=== PATIENT | male | born 1960 | race Caucasian/White ===

== ENCOUNTER → 2017-03-19 | Outpatient (CLI) | payer MEDICARE, OTHER ==
[~2017-03-19] MED LIST: ALDACTONE 25MG25 MG PO; ASPIRIN 81MG TA81 MG PO; ATORVASTATIN CA10 M1 PO; BRILINTA90 M1 PO; CARVEDILOL 1212.5 MG PO; CARVEDILOL 25MG25 MG PO; CARVEDILOL6.25 MG PO; CELEBREX50 MG PO; DEPO-TESTOS200 MG/ML IM; DULOXETINE60 MG PO; EFFIENT10 MG PO; FLAGYL500 M1 PO; FLEXERIL10 MG PO; HYDROCODONE-APA1 TA2 PO; IMDUR30 MG PO; LASIX 40MG. TAB40 MG PO; LEVAQUIN500 MG PO; LISINOPRIL 10MG10 MG PO; LISINOPRIL 20MG20 MG NG; LISINOPRIL5 MG NG; MULTI VITAMINS1 TA1 PO; NITROGLYCERIN0.4 MG SL; PANTOPRAZOLE SO40 M1 PO; RANEXA500 M1 PO; ROPINIROLE HYD0.5 MG PO; SPIRONOLACTONE25 MG NG
--- NOTE | 2017-03-20 08:10 | RADIOLOGY REPORT PS360 ---
CT LUMBAR SPINE W/O CONTRAST CLINICAL INDICATION: RT SIDED SCIATICA, RT HIP PAIN ORDERING PHYSICIAN: Brian Major MD PATIENT AGE: 57 years COMPARISON: Radiograph of 03/08/2017 and prior MRI of 07/30/2011 TECHNIQUE:Axial, sagittal, and coronal images are generated and reviewed without contrast FINDINGS: Multilevel lumbar spondylosis is present as described below. There is mild lumbar scoliosis convex left. No acute fracture or dislocation. No lytic or blastic change. T10-T11: Mild degenerative disc disease. T11-T12: Mild facet arthropathy. T12-L1: Moderate degenerative disc disease with mild endplate spurring and sclerosis with small disc osteophyte complex and facet arthropathy. L1-L2: Degenerative disc disease with minimal bulging disc. Mild right-sided foraminal narrowing L2-L3: Moderate to severe degenerative disc disease with endplate sclerosis and osteophyte formation with endplate osteophytes and mild bulging disc. Mild right-sided foraminal narrowing. L3-L4: Laminotomy defect on the right with degenerative disc disease and facet arthropathy along with bulging disc with mild right-sided foraminal narrowing. L4-L5: Moderate to severe degenerative disc disease facet arthropathy with bulging disc and endplate osteophytes. Mild right-sided foraminal narrowing and moderate left-sided foraminal narrowing. L5-S1: Transitional segment labeled as L5 similar to the previous MRI. Mild facet arthropathy. Osteoarthritic changes are present involving the right SI joint. IMPRESSION: Multilevel lumbar spondylosis with degenerative disc disease and facet arthritic changes with scoliosis bulging disc and foraminal narrowing as detailed each level above. Please see above for detailed description at each level.
== END ==
LOC: RAD 09:28
DX: M54.31 Sciatica, right side (principal); M25.551 Pain in right hip

== ENCOUNTER 2017-05-17 08:10 | Day surgery (SDC) | payer MEDICARE, OTHER ==
[2017-05-17] VITALS (12 sets, daily range): BP systolic 103–129; BP diastolic 58–90
[~2017-05-17] VITALS: Ht 175.3 cm; Wt 105.2 kg
[~2017-05-17 08:10] MED LIST changes: +APAP/HYDROCODON1 TA9 PO; -HYDROCODONE-APA1 TA2 PO; +LINZESS290 MCG PO; +LYRICA50 MG PO; +PREDNISONE 20MG20 MG PO; +PROTONIX40 MG PO; +TRAZODONE100 MG PO
--- NOTE | 2017-05-17 09:58 | Procedure Note ---
Procedure detail Date of procedure: 05/17/17 Anesthesiologist: Dario Nelson MD Complications: None Pre-procedure diagnosis: Post laminectomy syndrome, degenerative disc disease of the lumbar spine Post-procedure diagnosis: same Indications for procedure: This patient is a pleasant 57-year-old white male who we are seeing for postlaminectomy syndrome with lumbar radiculopathy symptoms. He is currently on hydrocodone 7.5 mg 4 times a day, 2 in the morning and 2 at night which did not give him adequate pain relief. He has failed all conservative therapy including injections, oral medications, physical therapy and previous surgery. He is a good candidate for intrathecal therapy. I answered all questions and explained the risk and benefits. Since he has been on oral narcotics for such a long time I do believe that he would be a candidate for intrathecal ziconotide. We will plan on intrathecal ziconotide trial with single shot 5 g. He has had a successful psychological evaluation. Procedure detail: Informed consent was obtained and the risk and benefits of the procedure was explained to the patient. The patient was taken to the procedure room. He was prepped and draped in sterile fashion. C-arm fluoroscopy was used to view the lumbar spine. The skin and subcu tissues were dissected using lidocaine. A 17- gauge spinal needle was inserted and advanced into the L4-5 interspace until clear CSF was obtained. After this intrathecal catheter was inserted and advanced very easily to the L1 vertebral body. The catheter was secured in place we were able to easily withdraw clear CSF through the catheter. The patient tolerated the procedure very well with no compensations. He was taken to the recovery room in stable condition. After obtaining one set of vital signs the patient was bolused with intrathecal ziconotide 5 g single shot bolus. The patient did well with physical therapy. He did have some relief of his pain symptoms. Catheter was pulled, a Band-Aid was placed and patient was discharged home. Plan and disposition: We will follow-up with this patient in 1 week. We will reevaluate his symptoms and efficacy of the trial that time. at [id number]
== END 2017-05-17 12:00 | disposition home or self-care (01) ==
LOC: PM 08:10
PROC: 3E0R3BZ Introduction of Anesthetic Agent into Spinal Canal, Percutaneous Approach (ICD-10-PCS; principal; 2017-05-17)
PROC: B01B1ZZ Fluoroscopy of Spinal Cord using Low Osmolar Contrast (ICD-10-PCS; 2017-05-17)
DX: M51.16 Intervertebral disc disorders with radiculopathy, lumbar region (principal); M96.1 Postlaminectomy syndrome, not elsewhere classified

== ENCOUNTER → 2017-06-19 | Day surgery (SDC) | payer MEDICARE, OTHER ==
[~2017-06-19] VITALS: Ht 175.3 cm; Wt 105.7 kg
[2017-06-19 10:12] LABS: BUN 14 mg/dL (7-18)
[2017-06-19 10:15] LABS: GFR (ESTIMATED) 77 ML/MIN (>60)
[2017-06-19 10:19] LABS: LYMPH # 3.5 K/mm3 (0.7-4.5); LYMPH % 30.9 % (10-50)
[2017-06-19 10:20] LABS: HEMOGLOBIN 14.3 g/dL (14.1-18.0)
[2017-06-19 10:25] LABS: BILIRUBIN, INDIRECT 0.38 mg/dL (0-0.9)
--- NOTE | 2017-06-19 11:02 | Operative Note ---
Surgeon/Diagnoses Surgeon/Building Serviceman(s) Date of procedure: 06/19/17 Surgeon: Edouard Hurd MD Diagnoses Pre-op diagnosis: Post laminectomy syndrome lumbar spine with degenerative disc disease of lumbar spine with lumbar radiculopathy Post-op diagnosis Same Procedure Procedure Procedure: Placement of intrathecal pain pump generator Indications: MARLYS POOLE JR is a 57 year-old Male with a history of pain secondary to postlaminectomy syndrome of the lumbar spine and lumbar degenerative disc disease as well as lumbar radiculopathy. Findings: Not applicable Procedure Description: The patient was placed prone on the operating table and his back and flank regions were prepped and draped in sterile fashion. Once adequate IV sedation was obtained the anesthesia and local anesthesia was 1 percent Xylocaine with epinephrine the paraspinal incision was made by through which an intrathecal catheter was passed into the intrathecal space to the desired by the physician. Catheter was then fixed the paraspinal fashion with a fixation device and 2-0 Prolene sutures. At this point a LEFT flank incision was made under which made a pocket for placement of the reservoir. Catheter was passed from the paraspinal incision to the pocket incision was a tunneling device. Catheter affixed the generator was placed in the pocket. CSF was aspirated from the generator noting patency of the system. Wounds were irrigated with antibiotics solution. Subcu tissues closed with 2-0 Vicryl and skin closure and stitch of 4- 0 nylon. Wounds were sealed with skin glue and covered with sterile dressing and a binder. The patient tolerated procedure and was taken to the recovery room in stable condition. EBL (ml): 5 Anesthesia: LMAC Complications: None Disposition Disposition: Upon recovery the patient will be discharged home and will follow-up in the office in 2 weeks for suture removal. Wound care And instruction given to the patient prior to discharge. We will be contacting her redness pain and drainage nausea vomiting fever chills or any other concern. The patient our procedure well. at [id number]
--- NOTE | 2017-06-19 11:59 | Operative Note ---
Surgeon/Diagnoses Surgeon/Environmental Remediation Specialist(s) Date of procedure: 06/19/17 Surgeon: Dario Nelson MD Diagnoses Pre-op diagnosis: Post laminectomy syndrome lumbar spine with degenerative disc disease of lumbar spine with lumbar radiculopathy symptoms Post-op diagnosis Same Procedure Procedure Procedure: Permanent placement intrathecal catheter and pain pump Indications: MARLYS POOLE JR is a 57 year-old Male with a history of low back pain with post laminectomy syndrome of lumbar spine with lumbar radiculopathy symptoms. He has failed all conservative therapy including physical therapy, injections and oral narcotics. He is also failed previous surgery. He gets side effects with narcotics. He underwent a intrathecal ziconotide pump trial. He was 85 percent better. He also had a successful neuropsychological evaluation. He presents for permanent placement of intrathecal pain pump today. I have explained the risks and benefits and answer all questions. Findings: None Procedure Description: Informed consent was obtained and the risk and benefits of the procedure was explained to the patient. The patient was taken to the procedure room. He was placed prone on the procedure table. He was prepped and draped in sterile fashion. C-arm fluoroscopy was used to view the lumbar spine. The skin and subcutaneous tissues adjacent to the L4-L5 and L5-S1 interspace were anesthetized using lidocaine. I made an incision and dissected down the lumbar paraspinous fascia. A 17-gauge spinal needle was inserted and advanced into the L5-S1 interspace until clear CSF was obtained. After this intrathecal catheter was inserted and advanced very easily to the L1 vertebral body. The stylet of the catheter and the needle was withdrawn. The catheter was secured to the lumbar paraspinous fascia with an anchoring device and 2-0 Prolene. I prepared the pump with intrathecal ziconotide 14 mL, 25 g per mL after doing three [address] Mo prepared the pump pocket. The catheter was tunneled from the back to the pump pocket and attached the pump. Both incisions were irrigated with bacitracin solution. The pump was placed in the pump pocket. The pump was secured to the fascia with 2-0 Prolene. We were able to freely withdraw clear CSF through the side port. Both incisions were then closed with 2-0 Vicryl followed by 4-0 nylon. The pump was interrogated and started at 1.2 g per day. Patient tolerated the procedure well with no complications. EBL (ml): 5 Anesthesia: LMAC Implants: Flowonix pump and catheter Complications: None Disposition Disposition: We will follow-up with this patient in 2 weeks. We will reevaluate his symptoms and refill him at his 2 week appointment. We will make adjustments at that time. If he has any problems or side effects he is to call us in the pain clinic. at [phone]
[2017-06-19 14:59] VITALS: BP 100/70
== END ==
LOC: SDC 09:06
PROVIDERS: Anesthesiology; Internal Medicine
PROC: 0JH70VZ Insertion of Infusion Pump into Back Subcutaneous Tissue and Fascia, Open Approach (ICD-10-PCS; 2017-06-19)
PROC: 00HU03Z Insertion of Infusion Device into Spinal Canal, Open Approach (ICD-10-PCS; principal; 2017-06-19 10:30)
DX: M51.16 Intervertebral disc disorders with radiculopathy, lumbar region (principal); I25.10 Atherosclerotic heart disease of native coronary artery without angina pectoris; I42.9 Cardiomyopathy, unspecified
CPT/HCPCS: C1755; C1772; J3370